=== PATIENT | male | born 1965 | race Caucasian/White ===

== ENCOUNTER → 2016-05-09 | Outpatient (CLI) | payer BC ==
--- NOTE | 2016-05-15 07:13 | POLYSOMNOGRAPH REPORT ---
CLINICAL DATA: A 50-year-old male with a BMI of 36.56, referred by Dr. Cobb for evaluation of possible obstructive sleep apnea. He sleeps 10-12 hours per night and still awakens fatigued. On the evening of 05/10/2016, a home sleep apnea test was performed using a [employer] type 3 monitor. RECORDING RESULTS: Total recording time was 10 hours. The patient's estimated sleep time and patient monitoring time was 10 hours. RESPIRATORY DATA: There was no evidence of clinically significant sleep apnea/hypopnea noted. The BETTY was 3.7. There were 4 obstructive and 2 central apneic episodes. There were 31 hypopneic episodes. The longest respiratory event was 58 seconds. OXIMETRY DATA: Intermittent nocturnal hypoxemia was seen. Oxygen ginny was 76%. Mean saturation was 93%. Time below 89% was 4 minutes. HEART RATE DATA: Heart rates ranged from 45-57 beats per minute. SNORING DATA: Snoring was recorded throughout the night. IMPRESSION: No evidence of clinically significant sleep apnea/hypopnea or sustained nocturnal hypoxemia to explain this patient's symptoms. RECOMMENDATIONS: The patient should continue to practice good sleep hygiene. REGINAD
== END | disposition home or self-care (01) ==
LOC: C.NEUR 12:16
PROVIDERS: ATTEND Family Medicine
DX: R53.83 Other fatigue (principal)